=== PATIENT | female | born 1990 | race Caucasian/White ===

== ENCOUNTER 2022-03-05 08:32 | Emergency (ER) | payer OTHER, SELFPAY ==
--- NOTE | ~2022-03-05 | XR_ITS ---
EXAMINATION: XR hand RT min 3V DATE: 03/05/2022 09:02 INDICATION: Right hand smashed in a van door with injury to the right second and third digits. TECHNIQUE: Posteroanterior, oblique and lateral views of the right hand were obtained. COMPARISON: None. FINDINGS: Small nondisplaced volar plate avulsion fractures along the palmar margin of the base of the right se cond and third middle phalanges. The fracture lines involve a small portion of the palmar side of the articular surfaces without significant fracture gap or incongruity. Joint spaces are normal. Soft ti ssue swelling at the second and third digits. IMPRESSION: 1. Nondisplaced small intra-articular volar plate avulsion fracture at the palmar base of the right s econd and third middle phalanges. Reviewed, dictated and finalized at location A. [facility] IMPRESSION: 1. Nondisplaced small intra-articular volar plate avulsion fracture at the palm ar base of the right second and third middle phalanges.
[2022-03-05 08:46] VITALS: BP 105/60; PULSE 64; RESP 14; TEMP 36.6; O2SAT 100
--- NOTE | 2022-03-05 09:30 | ED.UPPEXIN ---
HPI - Extremity Injury (Upper) General Chief Complaint: Extremity Injury, Upper Stated Complaint: Finger Injury Time Seen by Provider: 03/05/22 09:30 Source: patient, RN notes reviewed and old records reviewed Mode of arrival: ambulatory Limitations: no limitations History of Present Illness HPI narrative: 31-year-old female who presents to [facility] with an injury to her 2nd and 3rd right fingers from injury when she slammed her fingers in van door last night. Patient has acute bruising and swelling to her 2nd and 3rd finger of her right hand wit some dorsal superficial abrasions noted also and is right hand dominant. 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 Patient has used ice to her hand and also used [place] homeopathic pain medication. Patient is presently breast feeding. MD complaint: injury to: right and finger (2nd and 3rd) Onset (ago): hour(s) (occurred last night) Handedness: right Severity scale (1-10): 4 Treatments prior to arrival: other ([place] homeopathic ) Related Data Home Medications Medication Instructions Recorded Confirmed No Home Medications 03/05/22 03/05/22 Allergies Allergy/AdvReac Type Severity Reaction Status Date / Time No Known Allergies Allergy Verified 03/05/22 09:15 Review of Systems Review of Systems: CONSTITUTIONAL: Denies fever, chills, or sweats. CARDIOVASCULAR: Denies chest pain, palpitations, or edema. RESPIRATORY: Denies cough or dyspnea. SKIN: Denies rash or itching. no laceration noted to finger small dorsal abrasions to 2nd and 3rd dorsal aspect of fingers MUSCULOSKELETAL: Reports pain with swelling and bruising to right 2nd and 3rd fingers due to injury slammed finger in van door last night, pain increases with attempts to bend or move fingers. NEUROLOGIC: Denies numbness, or weakness. All systems reviewed & are unremarkable except as noted in HPI and below PMFSH Social History Social History (Updated 03/12/22 @ 17:53 by Zaynab Trinidad NP) Smoking status: Never smoker Comments At time of signature, agree with nursing past medical, surgical, social and family history. There is no relevant family history pertinent to the presenting complaint Exam Narrative: GENERAL: Well-appearing, well-nourished, and in no acute distress. HEAD: Normocephalic, atraumatic. EYES: PERRLA and EOMI. ENT: Nares clear, no rhinorrhea or epistaxis. Mucous membranes moist.TM's normal with good light reflex, throat pink with no redness or swelling NECK: Supple.no lymphadenopathy CHEST: Clear to auscultation. No respiratory distress.SAO2 100% on room air HEART: Regular rate and rhythm. No murmur heard. Normal peripheral pulses. ABDOMEN: Soft, nontender, nondistended, normal active bowel sounds. EXTREMITIES: Normal range of motion. No edema.Exception noted to right 2nd and 3rd finger with swelling, pain, and ecchymosis with small abrasions on dorsal aspect of finger, increased discomfort with any attempt of movement SKIN: Warm, dry, no rash. NEURO: No focal deficits. Alert and oriented x3. Course Course Level of Care: Express Care Visit Vital Signs Vital signs: Vital Signs Temperature 36.6 C 03/05/22 08:46 Pulse Rate 64 03/05/22 08:46 Respiratory Rate 14 03/05/22 08:46 Blood Pressure 105/60 03/05/22 08:46 Pulse Oximetry 100 03/05/22 08:46 Oxygen Delivery Room Air 03/05/22 08:46 Temperature 36.6 C 03/05/22 08:46 Pulse Rate 64 03/05/22 08:46 Respiratory Rate 14 03/05/22 08:46 Blood Pressure 105/60 03/05/22 08:46 Pulse Oximetry 100 03/05/22 08:46 Oxygen Delivery Room Air 03/05/22 08:46 MDM - Extremity Injury (Upper) MDM Narrative Medical decision making narrative: Patient's injury and or pain is consistent with musculoskeletal etiology. No signs of neurological or vascular compromise on exam. Compartments and tissues are soft without signs of compartment syndrome. Pain is felt appropriate for evaluation on outpatient basis. Differential Diagnosis
== END 2022-03-05 09:55 | disposition home or self-care (01) ==
PROVIDERS: Emergency Provider Registered Nurse
DX: S62.650A Nondisplaced fracture of middle phalanx of right index finger, initial encounter for closed fracture (principal); S62.652A Nondisplaced fracture of middle phalanx of right middle finger, initial encounter for closed fracture; X58.XXXA Exposure to other specified factors, initial encounter
CPT/HCPCS: 29130 ×2; 73130; 99213; 99214; G0463